=== PATIENT | female | born 1990 | race Caucasian/White ===

== ENCOUNTER 2018-11-30 12:34 | Emergency (ER) | payer MEDICAID ==
[~2018-11-30] VITALS: Ht 162.6 cm; Wt 85.3 kg
[2018-11-30 12:43] VITALS: BP 106/74; Ht 162.6 cm; Wt 85.3 kg
== END 2018-11-30 14:54 | disposition left against medical advice (07) ==
LOC: ED 12:34
DX: Z53.21 Procedure and treatment not carried out due to patient leaving prior to being seen by health care provider (principal)